=== PATIENT | female | born 1930 | race Caucasian/White ===

== ENCOUNTER 2017-04-19 09:41 | Emergency (ER) | payer MEDICARE, OTHER ==
--- NOTE | 2017-04-19 10:07 | ERNOTE ---
Medical Problem HPI - Narrative Date of Service: 04/19/17 - General Chief Complaint: General Assessment Time Seen by Provider: 04/19/17 10:05 Source: patient, RN/MD, RN notes reviewed, old records Exam Limitations: no limitations - Immun/Allergies/Home Medications Immunizations: IMMUNIZATION HX Immunizations Up to Date Yes History of Influenza Vaccine Yes Hx Pneumococcal Vaccination Yes Allergies/Adverse Reactions: Allergies acetaminophen [From Darvocet-N 100] Adverse Reaction (Mild, Verified 04/19/17 09 :57) N/V propoxyphene napsylate [From Darvocet-N 100] Adverse Reaction (Mild, Verified 09:57) N/V Home Medications: HOME MEDICATIONS Aspirin [Aspirin Enteric Coated] 81 mg PO DAILY 01/11/16 [Last Taken 01/16/16 09 :00] Calcium Carbonate/Vitamin D3 [Calcium 500-Vit D3 200 Tablet] 2 each PO DAILY [Last Taken 01/16/16 09:00] Cholecalciferol [Vitamin D] 1,000 unit PO DAILY 01/11/16 [Last Taken 01/16/16 09 :00] Furosemide [Lasix] 40 mg PO DAILY 01/11/16 [Last Taken 01/16/16 09:00] Metoprolol Tartrate [Lopressor] 25 mg PO BID 01/11/16 [Last Taken 01/16/16 09:00 ] Multivitamins [Multivitamin Almas] 1 cap PO DAILY 01/11/16 [Last Taken 09:00] Simvastatin [Zocor] 10 mg PO DAILY 01/11/16 [Last Taken 01/15/16 21:00] Acetaminophen [Tylenol] 500 mg PO Q4H PRN #30 tablet 01/26/16 [Last Taken Unknown] Lisinopril [Zestril] 40 mg PO DAILY #30 tablet 01/26/16 [Last Taken Unknown] oxyCODONE HCL/ACETAMINOPHEN [Percocet 5 MG/325 MG] 1 tab PO Q4H PRN #10 tablet 01/26/16 [Last Taken Unknown] Albuterol Sulfate [Proair Respiclick] 90 mcg IH Q4H PRN 04/19/17 [Last Taken Unknown] Albuterol Sulfate/Ipratropium [Duoneb 2.5-0.5MG/3ML Soln] 3 ml IH BID PRN [Last Taken Unknown] Iron 04/19/17 [Last Taken Unknown] Iron 28 mg PO DAILY 04/19/17 [Last Taken Unknown] - History of Present History Narrative: 86 y/o female brought to the ED from home by a family member after being contacted by her PCP's office regarding abnormal lab work. She was seen by Dr. Arriola yesterday and found to have a WBC over 20,000. She was found to have cellulitis in her left lower leg and was started on cefdinir. She has not been feeling well for quite sometime. She had a colon resection last year done by Dr. Colon for adenocarcinoma. She has had increased swelling in both legs, trouble swallowing, poor appetite, weight loss and abdominal bloating. She reports feeling like she has to have a bowel movement and then passing a large amount of gas with some loose stool. She also has a cough and shortness of breath, but this is not worse than usual and she attributes it to her COPD. Dr. Arriola spoke to me yesterday regarding the patient since she had directed her to come here for further evaluation. Review of Systems - Review of Systems Constitutional: Present: fatigue, malaise, decreased activity level. Absent: fever, chills EYE: Present: no symptoms reported ENT: Present: no symptoms reported Respiratory: Present: shortness of breath, cough. Absent: orthopnea, wheezing Cardiology: Present: edema. Absent: chest pain, syncope, claudication Gastrointestinal/Abdominal: Present: eating less, drinking less. Absent: nausea , vomiting, abdominal pain Genitourinary: Absent: dysuria, hematuria Musculoskeletal: Present: no symptoms reported Skin: Present: lesions, change in color. Absent: rash, lumps Neurological: Absent: headache, dizziness/light-headedness, weakness, numbness Endocrine: Present: no symptoms reported Hematologic/Lymphatic: Present: no symptoms reported Psych: Present: no symptoms reported - Patient's Past Medical History Patient History - Medical: Other - Giant cell arteritis, Polymyalgia rheumatica Patient History - Cardiac/Respiratory: COPD, Hypertension, Hyperlipidemia Patient History - Cancer: Colon Patient History - Surgical Procedures: Cataracts, Colon Resection, Colonoscopy, T & A, Other Patient History - Other: None LMP (females 10-50): Menopausal LMP (Calendar): 08/13/69 - Family History Father Family History - Medical: , No pertinent hx Family History - Cardiac/Respiratory: Other Mother Family History - Medical: , No pertinent hx - Social History Living Situations: home Abuse History: No History of abuse Psych History: No pertinent hx Smoking Status: Former smoker Have you smoked in the past 12 months: No Patient requests Smoking Cessation Consult: No Initiate information on Smoking Cessation: No Alcohol Use: none Drug Use: none - Immunizations Immunizations Up to Date: Yes Hx Pneumococcal Vaccination: Yes History of Influenza Vaccine: Yes Physical Exam - Physical Exam General Appearance: Present: alert, no apparent distress, thin - Frail appearing Head Exam: Present: normal inspection Neck: Present: normal inspection, nontender, supple Respiratory: Present: no respiratory distress, no accessory muscle use, rales - Right lung base Cardiovascular/Chest: Present: regular rate, rhythm, no murmur, normal peripheral pulses Peripheral Pulses: N=norm/S=strong/W=weak/B=bound/A=absent: Dorsalis-pedis (R): Normal, Dorsalis-pedis (L): Normal Gastrointestinal/Abdominal: Present: normal bowel sounds, nontender, soft, distended - Bloated appearing Extremity Exam: Present: normal range of motion, pedal edema, extremity edema - Right greater than left lower leg. Absent: joint redness, joint swelling Neurological Exam: Present: alert, oriented, normal mood/affect, no motor/ sensory deficits Skin Exam: Present: warm/dry, other - Erythema to bilateral lower legs, much worse on left, dry/crusted yellowish lesions on both lower legs ED Progress - Results and Orders Patient's Lab Results:: I have reviewed the patient's lab results. - Vital Signs Patient's Vital Signs:: I have reviewed the patient's vital signs. Vital Signs: Vital Signs 04/19/17 09:45 Temperature 35.6 C L Pulse Rate 92 Respiratory 16 Rate Blood Pressure 113/42 O2 Sat by Pulse 97 Oximetry - X-Ray X-Ray #1 X-Ray: chest Interpretation: Reviewed by me X-ray Comments: IMPRESSION: 1. Bilateral pulmonary nodules as above, largest in the left upper lobe. Differential diagnosis includes infection versus malignancy to include primary lung cancer versus metastatic disease. 2. Additional comments are as above. Electronically signed by Pil Rashid, M.D.. - Progress/Reassessment Chief Complaint: General Assessment Progress:: Unchanged Progress Note-Subjective: 04/19/17 11:59 Negligible improvement in WBC but has only had 2 doses of cefdinir for the cellulitis in her left leg. No other source of infection found on chest xray or UA. Given the elevation in her alk phos and nodules on chest xray, suspect that her colon CA has metastasized. Discussed this with patient and family. Needs CT of abdomen and pelvis for further evaluation, but she is not having symptoms that necessitate this being done emergently. Will order CT to be done on outpatient basis. Follow up scheduled with PCP. Patient and family in agreement with plan. Departure - Departure Clinical Impression: Cellulitis of left lower leg, Abdominal bloating, Weight loss, unintentional, Elevated alkaline phosphatase level, Adenocarcinoma, colon Disposition: Home Follow Up Needed Condition: Stable Instructions: Cellulitis, Adult, [id number] Additional Instructions: Continue current antibiotic Elevate legs as much as possible, can also try compression socks CT scan and follow up with Dr. Arriola as scheduled Return to ER for fever, vomiting, or other worsening symptoms Referrals: Jen Arriola MD [Primary Care Provider] - 04/24/17 2:30 pm
[2017-04-19 10:38] LABS: Hematocrit 32.9 % (37.0-47.0); Hemoglobin 10.1 gm/dL (12.5-16.0); Mean Cell Volume 84.4 fl (78-100); Mean Corpuscular Hemoglobin 25.9 pg (27-31); Mean Corpuscular Hgb Conc 30.7 g/dl (32-36); Mean Platelet Volume 11.6 fl (6.0-9.5); Neutrophil # 16.3 K/mm3 (1.3-6.0); Platelet Count 703 K/mm3 (150-450); Red Cell Distribution Width 19.2 % (11.5-14.0); White Blood Count 19.4 K/mm3 (4.0-10.5)
[2017-04-19 11:01] LABS: Albumin * 2.2 gm/dl (3.4-5.0); Anion Gap 13.2 mmol/L (6.8-13.8); Bilirubin, Total 0.8 mg/dL (0.0-1.1); Ca. Corrected For Albumin 10.9 mg/dL (8.4-10.2); Calcium * 9.8 mg/dL (7.9-10.9); Carbon Dioxide 28.7 mmol/L (24-32.6); Potassium 3.9 mmol/L (3.4-4.6); Total Protein 6.7 gm/dL (6.2-8.2)
[2017-04-19 11:13] LABS: CRP 23.6 mg/dL (0.0-0.9)
[2017-04-19 11:20] VITALS: BP 110/40
[2017-04-19 11:32] LABS: Urine Bilirubin Negative (NEGATIVE); Urine Blood Negative /ul (NEGATIVE); Urine Ketone Negative (NEGATIVE); Urine Nitrite Negative (NEGATIVE); Urine Protein Negative (NEGATIVE); Urine Urobilinogen Normal (NORMAL)
[2017-04-19 11:40] LABS: Urine Appearance Clear; Urine Bacteria None Seen; Urine Color Dark Yellow; Urine RBC None Seen /hpf (0-5); Urine WBC None Seen /hpf (0-5)
== END 2017-04-19 12:39 | disposition home or self-care (01) ==
LOC: ER 09:41
PROC: 0T9B7ZZ Drainage of Bladder, Via Natural or Artificial Opening (ICD-10-PCS; principal; 2017-04-19)
DX: L03.116 Cellulitis of left lower limb (principal); R14.0 Abdominal distension (gaseous); R63.4 Abnormal weight loss; R74.8 Abnormal levels of other serum enzymes; C18.9 Malignant neoplasm of colon, unspecified; R53.83 Other fatigue

== ENCOUNTER 2017-04-29 14:17 | Inpatient (IN) | payer MEDICARE, OTHER ==
[2017-04-29] MEDS ORDERED: NORMAL SALINE 1,000 ML IV ONE ×2 (14:30→15:51)
[2017-04-29 15:01] LABS: Hemoglobin 10.3 gm/dL (12.5-16.0); Mean Cell Volume 86.2 fl (78-100); Mean Corpuscular Hemoglobin 26.9 pg (27-31); Mean Corpuscular Hgb Conc 31.2 g/dl (32-36); Mean Platelet Volume 11.4 fl (6.0-9.5); Neutrophil # 16.7 K/mm3 (1.3-6.0); Neutrophil % 83.7 % (42-75.0); Platelet Count 652 K/mm3 (150-450); Red Blood Count 3.83 M/mm3 (4.2-5.4); Red Cell Distribution Width 20.7 % (11.5-14.0)
[2017-04-29 15:17] LABS: Troponin I Less than 0.017 ng/ml (0.00-0.10)
[2017-04-29 15:19] LABS: ALT 18 U/L (19-67); AST 34 U/L (0-48); Albumin * 2.1 gm/dl (3.4-5.0); Alkaline Phosphatase * 371 U/L (50-170); Anion Gap 10.2 mmol/L (6.8-13.8); BNP * 1426 pg/mL (5-550); BUN/Creatinine Ratio 24.1 (9.0-21.6); Bilirubin, Total 0.5 mg/dL (0.0-1.1); Blood Urea Nitrogen 48 mg/dL (3-23); Ca. Corrected For Albumin 11.1 mg/dL (8.4-10.2); Calcium * 9.9 mg/dL (7.9-10.9); Carbon Dioxide 31.4 mmol/L (24-32.6); Chloride 102 mmol/L (97-106); Glucose * 103 mg/dL (70-110); Potassium 4.6 mmol/L (3.4-4.6); Sodium 139 mmol/L (132-142); Total Protein 6.8 gm/dL (6.2-8.2)
[2017-04-29 15:47] LABS: Urine Appearance Clear; Urine Bacteria None Seen; Urine Bilirubin Negative (NEGATIVE); Urine Blood Negative /ul (NEGATIVE); Urine Color Yellow; Urine Ketone Negative (NEGATIVE); Urine Nitrite Negative (NEGATIVE); Urine Protein Negative (NEGATIVE); Urine RBC None Seen /hpf (0-5); Urine Urobilinogen Normal (NORMAL); Urine WBC None Seen /hpf (0-5)
[2017-04-29] MEDS: NORMAL SALINE 1,000 ML IV PRN (17:34)
[2017-04-29] MEDS: AZITHROMYCIN 500 MG in DEXTROSE 5 % IN WATER 250 ML IV SCH ×2 (17:57)
[2017-04-29] MEDS ORDERED: ALBUTEROL SULFATE/IPRATROPIUM 3 ML NEBU IH SCH (21:00)
--- NOTE | 2017-04-29 21:04 | HP ---
Chief Complaint - Chief Complaint Date of Service: 04/29/17 Time of Service: 20:29 Chief Complaint: weakness, lethargic, dizziness History of Present Illness: 86 years old female adm to the hospital from ER with reports of dizziness, lethargic, weakness and unintentional weight loss. Pt a poor historian additional information obtained from and previous records. Per pt have not been eating, her legs have gotten weaker and she is having difficulty standing or walking. Per patient she is having difficulty swallowing and often chokes on her food. she has lost her appetite over the past several weeks. Last week she was seen by Dr. Arriola and was told her have mets to lungs and liver. 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 in ER CXR: Bilateral pulmonary nodules stable, no acute cardiopulmonary process. 04/23/17 CT ABD/pelvic: Multiple liver lesions suspicious for liver mets. Incidental opacification of left lower lobe basal segment bronchi-correlate clinically aspiration vs mucus plugging. Plan of care discussed with attending, pt via phone he verbalized understanding and agrees. - Patient's Past Medical History Patient History - Medical: Cataracts, Other Patient History - Cardiac/Respiratory: COPD, Hypertension, Hyperlipidemia Patient History - Cancer: Colon - sigmoid colon cancer, Liver, Lung Patient History - Surgical Procedures: Cataracts, Colon Resection, Colonoscopy, T & A, Other Patient History - Other: None LMP (females 10-50): Menopausal LMP (Calendar): 08/13/69 - Family History Father Family History - Medical: , No pertinent hx Family History - Cardiac/Respiratory: Other Mother Family History - Medical: , No pertinent hx - Social History Living Situations: spouse Abuse History: No History of abuse Psych History: No pertinent hx Smoking Status: Former smoker Have you smoked in the past 12 months: No Do you dip or chew tobacco: No Patient requests Smoking Cessation Consult: No Initiate information on Smoking Cessation: No Alcohol Use: none Drug Use: none - Immunizations Immunizations Up to Date: Yes Hx Pneumococcal Vaccination: Yes History of Influenza Vaccine: Yes Review Of Systems (GEN) - Review of Systems Generalized/Overall Review: Present: Weakness, Malaise, Fatigue, Weight loss EENTM: Present: No Symptoms Reported Respiratory: Present: Cough, Shortness of Breath Cardiac: Present: No Symptoms Reported Abdominal: Present: No Symptoms Reported Genitourinary: Present: No Symptoms Reported Musculoskeletal: Present: No Symptoms Reported Neurological: Present: Weakness Skin: Present: Other - BLE with PAD, swelling, venous stasis Endocrine: Present: No Symptoms Reported Allergies/Adverse Reactions: Allergies Allergy/AdvReac Type Severity Reaction Status Date / Time acetaminophen AdvReac Mild N/V Verified 04/29/17 14:23 [From Darvocet-N 100] propoxyphene napsylate AdvReac Mild N/V Verified 04/29/17 14:23 [From Darvocet-N 100] Home Medications: HOME MEDICATIONS Aspirin [Aspirin Enteric Coated] 81 mg PO DAILY 01/11/16 [Last Taken 01/16/16 09 :00] Calcium Carbonate/Vitamin D3 [Calcium 500-Vit D3 200 Tablet] 2 each PO DAILY [Last Taken 01/16/16 09:00] Cholecalciferol [Vitamin D] 1,000 unit PO DAILY 01/11/16 [Last Taken 01/16/16 09 :00] Furosemide [Lasix] 40 mg PO BID 01/11/16 [Last Taken 01/16/16 09:00] Metoprolol Tartrate [Lopressor] 25 mg PO BID 01/11/16 [Last Taken 01/16/16 09:00 ] Multivitamins [Multivitamin Almas] 1 cap PO DAILY 01/11/16 [Last Taken 09:00] Simvastatin [Zocor] 10 mg PO DAILY 01/11/16 [Last Taken 01/15/16 21:00] Acetaminophen [Tylenol] 500 mg PO Q4H PRN #30 tablet 01/26/16 [Last Taken Unknown] Albuterol Sulfate [Proair Respiclick] 90 mcg IH Q4H PRN 04/19/17 [Last Taken Unknown] Albuterol Sulfate/Ipratropium [Duoneb 2.5-0.5MG/3ML Soln] 3 ml IH BID PRN [Last Taken Unknown] Iron 28 mg PO DAILY 04/19/17 [Last Taken Unknown] Lisinopril [Zestril] 40 mg PO DAILY 04/29/17 [Last Taken Unknown] Exam - Exam Vital Signs: Vital Signs - Last Taken Temp 36.7 C 04/29/17 16:42 Pulse 96 04/29/17 16:42 Resp 24 H 04/29/17 16:42 BP 115/45 04/29/17 16:42 Pulse Ox 96 04/29/17 16:42 Constitutional: Present: Alert, Oriented x3, Cooperative, Lethargic, Elderly ENT Exam: Present: hearing grossly normal Eye Exam: bilateral eye: normal inspection Neck: Present: full range of motion Back Exam: Present: no CVA tenderness Breasts: Present: Exam deferred Respiratory: Present: chest non-tender, no respiratory distress, decreased breath sounds, expiration (prolonged) Cardiovascular/Chest: Present: regular rate, rhythm, edema Peripheral Pulses: dorsalis-pedis (R): 2+, dorsalis-pedis (L): 2+ Abdomen: Present: Normal bowel sounds, soft, nontender, no rebound tenderness, mass palpable, distended /Rectal: Present: Exam deferred Extremity: Present: lower extremity edema, leg pain, pedal edema, slow capillary refill, swelling, other - venous stasis Skin Exam: Present: other - BLE edema stasis, pressure ulcer to buttocks Neurologic: Present: alert Appearance: Present: appropriate appearance Eye contact: Present: cooperative, good eye contact Thoughts: Present: no apparent hallucination. Absent: normal thought pattern Diagnostic Studies: Abnormal Lab Results 04/29/17 Range/Units 17:17 Lactic Acid, Venous 2.0 H (0.4-1.9) mmol/L Laboratory Results WBC 20.0 K/mm3 (4.0-10.5) H 04/29/17 14:40 RBC 3.83 M/mm3 (4.2-5.4) L 04/29/17 14:40 Hgb 10.3 gm/dL (12.5-16.0) L 04/29/17 14:40 Hct 33.0 % (37.0-47.0) L 04/29/17 14:40 MCV 86.2 fl (78-100) 04/29/17 14:40 MCH 26.9 pg (27-31) L 04/29/17 14:40 MCHC 31.2 g/dl (32-36) L 04/29/17 14:40 RDW 20.7 % (11.5-14.0) H 04/29/17 14:40 Plt Count 652 K/mm3 (150-450) H 04/29/17 14:40 MPV 11.4 fl (6.0-9.5) H 04/29/17 14:40 Immature Gran % (Auto) 0.90 % (0.001-0.429) H 04/29/17 14:40 Immature Gran # (Auto) 0.18 K/mm3 (0.000-0.0310) H 04/29/17 14:40 Neutrophils % 83.7 % (42-75.0) H 04/29/17 14:40 Lymphocytes % 7.1 % (20-51) L 04/29/17 14:40 Monocytes % 6.3 % (0.0-9) 04/29/17 14:40 Eosinophils % 1.6 % (0.0-3.0) 04/29/17 14:40 Basophils % 0.4 % (0.0-1.0) 04/29/17 14:40 Nucleated RBC % 0.0 k/mm3 (0-1) 04/29/17 14:40 Neutrophils # 16.7 K/mm3 (1.3-6.0) H 04/29/17 14:40 Lymphocytes # 1.4 k/mm3 (1.5-3.5) L 04/29/17 14:40 Monocytes # 1.3 k/mm3 (0.0-1.0) H 04/29/17 14:40 Eosinophils # 0.3 k/mm3 (0.0-0.7) 04/29/17 14:40 Absolute Basophils 0.1 k/mm3 (0.0-0.1) 04/29/17 14:40 Sodium 139 mmol/L (132-142) 04/29/17 14:40 Plasma Sodium 139 mmol/L (130-142) 04/29/17 14:40 Potassium 4.6 mmol/L (3.4-4.6) 04/29/17 14:40 Chloride 102 mmol/L (97-106) 04/29/17 14:40 Carbon Dioxide 31.4 mmol/L (24-32.6) 04/29/17 14:40 Anion Gap 10.2 mmol/L (6.8-13.8) 04/29/17 14:40 BUN 48 mg/dL (3-23) H D 04/29/17 14:40 Creatinine 1.99 mg/dL (0.4-1.4) H D 04/29/17 14:40 Est GFR (Non-Af Amer) 25 mL/min (60-130) L D 04/29/17 14:40 BUN/Creatinine Ratio 24.1 (9.0-21.6) H 04/29/17 14:40 Random Glucose 103 mg/dL (70-110) 04/29/17 14:40 Lactic Acid, Venous 2.0 mmol/L (0.4-1.9) H 04/29/17 17: Calcium 9.9 mg/dL (7.9-10.9) 04/29/17 14:40 Calcium Adj for Albumin 11.1 mg/dL (8.4-10.2) H 04/29/17 14:40 Total Bilirubin 0.5 mg/dL (0.0-1.1) 04/29/17 14:40 AST 34 U/L (0-48) 04/29/17 14:40 ALT 18 U/L (19-67) L 04/29/17 14:40 Alkaline Phosphatase 371 U/L (50-170) H 04/29/17 14:40 Troponin I Less than 0.017 ng/ml (0.00-0.10) 04/29/17 14:40 B-Natriuretic Peptide 1426 pg/mL (5-550) H 04/29/17 14:40 Total Protein 6.8 gm/dL (6.2-8.2) 04/29/17 14:40 Albumin 2.1 gm/dl (3.4-5.0) L 04/29/17 14:40 Urine Color Yellow 04/29/17 15:40 Urine Appearance Clear 04/29/17 15:40 Urine pH 6.0 pH (5.0-7.0) 04/29/17 15:40 Ur Specific [place] 1.010 SP.GR. (1.005-1.010) 04/29/17 15:40 Urine Protein Negative mg/dL (NEGATIVE) 04/29/17 15:40 Urine Glucose (UA) Negative mg/dL (NEGATIVE) 04/29/17 15:40 Urine Ketones Negative mg/dL (NEGATIVE) 04/29/17 15:40 Urine Blood Negative /ul (NEGATIVE) 04/29/17 15:40 Urine Nitrate Negative (NEGATIVE) 04/29/17 15:40 Urine Bilirubin Negative mg/dl (NEGATIVE) 04/29/17 15:40 Urine Urobilinogen Normal EU/dl (NORMAL) 04/29/17 15:40 Ur Leukocyte Esterase Negative /ul (NEGATIVE) 04/29/17 15:40 Urine RBC None seen /hpf (0-5) 04/29/17 15:40 Urine WBC None seen /hpf (0-5) 04/29/17 15:40 Ur Epithelial Cells None seen /hpf (0-5) 04/29/17 15:40 Urine Bacteria None seen (NONE) 04/29/17 15:40 Urine Culture Comments No culture indicated 04/29/17 15:40 CXR: Bilateral pulmonary nodules stable, no acute cardiopulmonary process. 04/23/17 CT ABD/pelvic: Multiple liver lesions suspicious for liver mets. Incidental opacification of left lower lobe basal segment bronchi-correlate clinically aspiration vs mucus plugging Assessment/Plan - Narrative Narrative: Liver lesions: 04/23/17 CT ABD/pelvic: Multiple liver lesions suspicious for liver mets. pt had history of adenocarcinoma of sigmoid colon, 01/2016 S/P sigmoid colon resection pt stated she was told a week ago about the liver mets. Dr. Arriola will discuss with Dr Colon and determine next plan of action. As of now she will wait for their input. pt is often disoriented and confused, will obtain head CT Unable to obtain CT with contrast due to elevated Bun/Cre 48/1.99 Ct head w/o: Atrophy, chronic microvascular changes of the white matter, otherwise negative ? URI vs Aspiration pneumonia vs Mucus plugging 04/23/17 Incidental opacification of left lower lobe basal segment bronchi 04/29/17 CXR: Pulmonary nodules stable, no acute cardiopulmonary process. Pt stated she have difficulty swallowing and often chokes on her food. On adm WBC 20.0, lactic acid 2.0 Continue with Iv antibiotic chest PT blood culture pending sputum culture pending CBC, CMP in AM venous stasis dermatitis wound care keep legs elevated on pillows. Protective paddings. Thrombocytosis- possible due to malignancy or anemia or infection On adm PLT 652, WBC 20.0, hgb 10.3 stable repeat PLT in AM Continue with plans as above labs pending Hypotension r/o sepsis on adm BP 106/45 HR 101, WBC 20.0 Continue to monitor vital signs and IVF Continue with plan as above in #2 ESPINOZA On adm Bun/ Cre 48/1.99 continue with IVF and monitor CMP in AM Unintentional weight loss- due to poor oral intake pt stated she loss approximately 30lb under a month Code status: Full with restrictions VTE ppx: TEDs/ SCD GI ppx: Protonix - Assessment/Plan (1) Liver lesion Problem: Acute (2) Adenocarcinoma, colon Problem: Chronic (3) Elevated alkaline phosphatase level Problem: Acute (4) Lower extremity edema Problem: Chronic (5) Shortness of breath Problem: Chronic (6) Venous stasis dermatitis Problem: Chronic Qualifiers: Laterality: bilateral Qualified Code(s): I87.2 - Venous insufficiency ( chronic) (peripheral) (7) Weight loss, unintentional Problem: Acute (8) HLD (hyperlipidemia) Problem: Chronic (9) HTN (hypertension) Problem: Chronic Qualifiers:
[2017-04-29] MEDS ORDERED: ALBUTEROL SULFATE/IPRATROPIUM 3 ML NEBU IH ONE (21:27)
[2017-04-29] MEDS ORDERED: ALBUTEROL SULFATE/IPRATROPIUM 3 ML NEBU IH PRN (21:54)
[2017-04-29] MEDS ORDERED: PANTOPRAZOLE SODIUM 40 MG in NORMAL SALINE 100 ML IV SCH (22:00)
[2017-04-29] MEDS: METOPROLOL TARTRATE 25 MG TABLET PO SCH (22:04)
[2017-04-29] MEDS ORDERED: SIMVASTATIN 10 MG TABLET PO SCH (22:30)
[2017-04-30] MEDS: ALBUTEROL SULFATE/IPRATROPIUM 3 ML NEBU IH SCH ×4 (01:18→18:18)
[2017-04-30] MEDS: MORPHINE SULFATE 2 MG/ML DISP.SYRIN IV PRN ×2 (01:39→22:11)
[2017-04-30] MEDS ORDERED: MORPHINE SULFATE 4 MG/ML SYRG IV PRN (02:54)
[2017-04-30] MEDS ORDERED: MORPHINE SULFATE 2 MG/ML DISP.SYRIN IV ONE (02:59)
[2017-04-30] MEDS: NORMAL SALINE 1,000 ML IV PRN (03:18)
[2017-04-30 05:33] LABS: Hemoglobin 8.4 gm/dL (12.5-16.0); Mean Cell Volume 86.3 fl (78-100); Mean Corpuscular Hemoglobin 26.8 pg (27-31); Mean Corpuscular Hgb Conc 31.1 g/dl (32-36); Mean Platelet Volume 11.8 fl (6.0-9.5); Neutrophil # 15.1 K/mm3 (1.3-6.0); Neutrophil % 88.2 % (42-75.0); Platelet Count 502 K/mm3 (150-450); Red Blood Count 3.13 M/mm3 (4.2-5.4); Red Cell Distribution Width 20.4 % (11.5-14.0); White Blood Count 17.2 K/mm3 (4.0-10.5)
[2017-04-30 05:52] LABS: Albumin * 1.5 gm/dl (3.4-5.0); Anion Gap 12.6 mmol/L (6.8-13.8); BUN/Creatinine Ratio 22.4 (9.0-21.6); Bilirubin, Total 0.5 mg/dL (0.0-1.1); Ca. Corrected For Albumin 9.7 mg/dL (8.4-10.2); Potassium 3.6 mmol/L (3.4-4.6); Total Protein 5.1 gm/dL (6.2-8.2)
[2017-04-30] MEDS ORDERED: NORMAL SALINE 1,000 ML IV ONE (05:55)
[2017-04-30] MEDS: DEXTROSE 5%-0.5 NORMAL SALINE 1,000 ML IV PRN ×2 (07:43→15:34)
[2017-04-30] MEDS: MULTIVITAMINS 1 CAP CAPSULE PO SCH (08:42)
[2017-04-30] MEDS: CHOLECALCIFEROL 1,000 UNIT CAPSULE PO SCH (08:42)
[2017-04-30] MEDS: CALCIUM CARBONATE/VITAMIN D3 1 TAB TABLET PO SCH ×2 (08:42→20:29)
[2017-04-30] MEDS: METOPROLOL TARTRATE 25 MG TABLET PO SCH (08:43)
[2017-04-30] MEDS ORDERED: FUROSEMIDE 40 MG TABLET PO SCH (09:00)
[2017-04-30] MEDS ORDERED: ASPIRIN 81 MG TABLET.DR PO SCH (09:00)
[2017-04-30] MEDS ORDERED: Iron 28 MG PO SCH (09:00)
[2017-04-30] MEDS: AZITHROMYCIN 500 MG in DEXTROSE 5 % IN WATER 250 ML IV SCH ×2 (17:58)
[2017-04-30] MEDS: HEPARIN SODIUM,PORCINE 5,000 UNITS/ML VIAL SC SCH (20:29)
[2017-05-01] MEDS: ALBUTEROL SULFATE/IPRATROPIUM 3 ML NEBU IH SCH ×4 (01:02→18:26)
[2017-05-01] MEDS: DEXTROSE 5%-0.5 NORMAL SALINE 1,000 ML IV PRN (03:19)
[2017-05-01 06:15] LABS: Hematocrit 27.5 % (37.0-47.0); Hemoglobin 8.9 gm/dL (12.5-16.0); Mean Cell Volume 83.8 fl (78-100); Mean Corpuscular Hemoglobin 27.1 pg (27-31); Mean Corpuscular Hgb Conc 32.4 g/dl (32-36); Mean Platelet Volume 11.4 fl (6.0-9.5); Platelet Count 507 K/mm3 (150-450); Red Blood Count 3.28 M/mm3 (4.2-5.4); Red Cell Distribution Width 20.5 % (11.5-14.0); White Blood Count 22.2 K/mm3 (4.0-10.5)
[2017-05-01 06:18] LABS: Total Cells Counted 100
[2017-05-01 06:23] LABS: Anion Gap 13.3 mmol/L (6.8-13.8); BUN/Creatinine Ratio 15.3 (9.0-21.6); Calcium * 7.9 mg/dL (7.9-10.9); Estimated Creat Clear 26.7; Potassium 3.3 mmol/L (3.4-4.6)
[2017-05-01 06:46] LABS: Lymphocyte 10 % (20-51); Monocyte 2 % (0-9); Neutrophil 88 % (42-75); Neutrophil # 19.5 K/mm3 (1.3-6.0)
[2017-05-01 06:47] LABS: Anisocytosis 2+; Hypochromia 2+
[2017-05-01 06:48] LABS: Platelet Estimate Increased (NORMAL)
[2017-05-01] MEDS ORDERED: POTASSIUM CHLORIDE 20 MEQ TABLET.SA PO ONE (07:32)
[2017-05-01] MEDS: CALCIUM CARBONATE/VITAMIN D3 1 TAB TABLET PO SCH ×2 (08:15→21:31)
[2017-05-01] MEDS: HEPARIN SODIUM,PORCINE 5,000 UNITS/ML VIAL SC SCH ×2 (08:16→21:35)
[2017-05-01] MEDS: CHOLECALCIFEROL 1,000 UNIT CAPSULE PO SCH (08:16)
[2017-05-01] MEDS: MULTIVITAMINS 1 CAP CAPSULE PO SCH (08:16)
[2017-05-01] MEDS ORDERED: Iron 28 MG PO SCH (09:00)
[2017-05-01] MEDS ORDERED: POTASSIUM CHLORIDE 20 MEQ in NORMAL SALINE 1,000 ML IV SCH (09:45)
[2017-05-01] MEDS ORDERED: CEFEPIME HCL 1 GM in DEXTROSE 5 % IN WATER 100 ML IV SCH ×2 (10:00)
[2017-05-01] MEDS: SACCHAROMYCES BOULARDII 250 MG CAPSULE PO SCH ×2 (10:19→21:31)
[2017-05-01] MEDS: LEVOFLOXACIN/D5W 750 MG/150 ML BAG IV SCH (10:59)
[2017-05-01] MEDS ORDERED: DEXTROSE 5%-0.5 NORMAL SALINE 1,000 ML IV PRN (11:44)
[2017-05-01] MEDS: POTASSIUM CHLORIDE 20 MEQ in DEXTROSE 5%-0.5 NORMAL SALINE 990 ML IV SCH ×2 (11:56→21:29)
[2017-05-01] MEDS: VANCOMYCIN HCL 750 MG in DEXTROSE 5 % IN WATER 250 ML IV SCH ×2 (12:40)
[2017-05-01] MEDS ORDERED: ACETAMINOPHEN 325 MG TABLET PO PRN (13:39)
[2017-05-02] MEDS: ALBUTEROL SULFATE/IPRATROPIUM 3 ML NEBU IH SCH ×4 (00:20→21:56)
[2017-05-02] MEDS: POTASSIUM CHLORIDE 20 MEQ in DEXTROSE 5%-0.5 NORMAL SALINE 990 ML IV SCH (05:37)
[2017-05-02 06:07] LABS: Hematocrit 30.9 % (37.0-47.0); Hemoglobin 9.6 gm/dL (12.5-16.0); Mean Cell Volume 85.1 fl (78-100); Mean Corpuscular Hemoglobin 26.4 pg (27-31); Mean Corpuscular Hgb Conc 31.1 g/dl (32-36); Mean Platelet Volume 11.3 fl (6.0-9.5); Platelet Count 603 K/mm3 (150-450); Red Blood Count 3.63 M/mm3 (4.2-5.4); Red Cell Distribution Width 21.1 % (11.5-14.0); White Blood Count 27.3 K/mm3 (4.0-10.5)
[2017-05-02 06:17] LABS: Total Cells Counted 100
[2017-05-02 06:36] LABS: Albumin * 1.6 gm/dl (3.4-5.0); Anion Gap 14.1 mmol/L (6.8-13.8); Bilirubin Direct 0.2 mg/dL (0.0-0.3); Bilirubin, Total 0.4 mg/dL (0.0-1.1); Bilirubin,Indirect 0.2 mg/dL (0.1-0.7); Calcium * 8.2 mg/dL (7.9-10.9); Carbon Dioxide 22.4 mmol/L (24-32.6); Estimated Creat Clear 33.1; Potassium 4.5 mmol/L (3.4-4.6); Total Protein 5.8 gm/dL (6.2-8.2)
[2017-05-02 06:51] LABS: Neutrophil 92 % (42-75)
[2017-05-02 06:52] LABS: Band 1 % (0-2.0); Eosinophil 3 % (0-3); Hypochromia 1+; Lymphocyte 2 % (20-51); Monocyte 2 % (0-9); Neutrophil # 25.1 K/mm3 (1.3-6.0); Platelet Estimate Increased (NORMAL)
[2017-05-02] MEDS: MULTIVITAMINS 1 CAP CAPSULE PO SCH (08:40)
[2017-05-02] MEDS: HEPARIN SODIUM,PORCINE 5,000 UNITS/ML VIAL SC SCH (08:40)
[2017-05-02] MEDS: CALCIUM CARBONATE/VITAMIN D3 1 TAB TABLET PO SCH ×2 (08:40→20:44)
[2017-05-02] MEDS: SACCHAROMYCES BOULARDII 250 MG CAPSULE PO SCH ×2 (08:40→20:44)
[2017-05-02] MEDS: CHOLECALCIFEROL 1,000 UNIT CAPSULE PO SCH (08:40)
[2017-05-02] MEDS: NORMAL SALINE 1,000 ML IV PRN ×2 (08:42→23:29)
[2017-05-02] MEDS: CEFEPIME HCL 1 GM in DEXTROSE 5 % IN WATER 100 ML IV SCH ×2 (10:10)
[2017-05-02] MEDS: VANCOMYCIN HCL 750 MG in DEXTROSE 5 % IN WATER 250 ML IV SCH ×2 (12:05)
[2017-05-02 12:12] LABS: Prothrombin Time (Patient) 11.9 Seconds (9.4-11.4)
[2017-05-02 12:13] LABS: INR 1.14 INR (0.90-1.10); Partial Thrombolplastin Time 37.9 Seconds (24-32)
[2017-05-02] MEDS: MORPHINE SULFATE 2 MG/ML DISP.SYRIN IV PRN ×2 (15:49→22:26)
[2017-05-02] MEDS: ALBUTEROL SULFATE 2.5 MG/0.5 ML VIAL.NEB IH PRN (16:03)
[2017-05-02] MEDS ORDERED: MORPHINE SULFATE 2 MG/ML DISP.SYRIN IV ONE (19:45)
[2017-05-03] MEDS: ALBUTEROL SULFATE/IPRATROPIUM 3 ML NEBU IH SCH ×4 (01:20→17:59)
[2017-05-03 06:59] LABS: Hematocrit 31.7 % (37.0-47.0); Hemoglobin 9.5 gm/dL (12.5-16.0); Mean Cell Volume 87.6 fl (78-100); Mean Corpuscular Hemoglobin 26.2 pg (27-31); Mean Platelet Volume 10.9 fl (6.0-9.5); Platelet Count 649 K/mm3 (150-450); Red Blood Count 3.62 M/mm3 (4.2-5.4); Red Cell Distribution Width 20.7 % (11.5-14.0); White Blood Count 27.6 K/mm3 (4.0-10.5)
[2017-05-03 07:01] LABS: Total Cells Counted 100
[2017-05-03 07:29] LABS: Anion Gap 11.4 mmol/L (6.8-13.8); BUN/Creatinine Ratio 18.4 (9.0-21.6); Calcium * 8.3 mg/dL (7.9-10.9); Carbon Dioxide 23.3 mmol/L (24-32.6); Estimated Creat Clear 43.6; Potassium 4.7 mmol/L (3.4-4.6); Total Protein 5.6 gm/dL (6.2-8.2)
--- NOTE | 2017-05-03 07:33 | PN ---
Subjective - Date and Time Seen Date: 04/30/17 Time: 09:00 Objective - Review of Systems Generalized/Overall Review: Reports: Weakness, Fatigue, Weight loss EENTM: Reports: No Symptoms Reported Respiratory: Reports: Cough, Shortness of Breath, Orthopnea, Wheezing Cardiac: Reports: No Symptoms Reported Abdominal: Reports: No Symptoms Reported Genitourinary Symptoms: Reports: No Symptoms Reported Musculoskeletal Complaints: Reports: No Symptoms Reported Neurological: Reports: No Symptoms Reported Skin: Reports: No Symptoms Reported Endocrine: Reports: No Symptoms Reported Misc: All systems neg except as marked - Vitals Vitals: Last Vital Signs Temp 36.4 C L 05/03/17 07:21 Pulse 117 H 05/03/17 07:21 Resp 40 H 05/03/17 07:21 BP 140/53 05/03/17 07:21 Pulse Ox 97 05/03/17 07:21 - Abnormal Lab Findings Abnormal Lab Findings: Abnormal Lab Results 05/02/17 05/02/17 05/03/17 Range/Units 05:35 11:57 06:57 WBC (4.0-10.5) K/mm3 RBC (4.2-5.4) M/mm3 Hgb (12.5-16.0) gm/dL Hct (37.0-47.0) % MCH (27-31) pg MCHC (32-36) g/dl RDW (11.5-14.0) % Plt Count (150-450) K/mm3 MPV (6.0-9.5) fl PT 11.9 H (9.4-11.4) Seconds INR (Anticoag Therapy) 1.14 H (0.90-1.10) INR PTT ([place]) 37.9 H (24-32) Seconds Potassium 4.7 H (3.4-4.6) mmol/L Chloride 109 H (97-106) mmol/L Carbon Dioxide 23.3 L (24-32.6) mmol/L Lactate Dehydrogenase 336 H (81-234) U/L Total Protein 5.6 L (6.2-8.2) gm/dL Procalcitonin 1.14 H (0.05-0.50) ng/mL 05/03/17 Range/Units 06:58 WBC 27.6 H (4.0-10.5) K/mm3 RBC 3.62 L (4.2-5.4) M/mm3 Hgb 9.5 L (12.5-16.0) gm/dL Hct 31.7 L (37.0-47.0) % MCH 26.2 L (27-31) pg MCHC 30.0 L (32-36) g/dl RDW 20.7 H (11.5-14.0) % Plt Count 649 H (150-450) K/mm3 MPV 10.9 H (6.0-9.5) fl PT (9.4-11.4) Seconds INR (Anticoag Therapy) (0.90-1.10) INR PTT ([place]) (24-32) Seconds Potassium (3.4-4.6) mmol/L Chloride (97-106) mmol/L Carbon Dioxide (24-32.6) mmol/L Lactate Dehydrogenase (81-234) U/L Total Protein (6.2-8.2) gm/dL Procalcitonin (0.05-0.50) ng/mL - Exam Constitutional: Present: Alert, Oriented x3, Cooperative, Elderly ENT Exam: Present: hearing grossly normal, moist mucous membranes Respiratory: Present: other - Diminished to absent breath sounds at the bases bilaterally, coarse breath sounds with rhonchi noted on left Cardiovascular/Chest: Present: regular rate, rhythm, edema Abdomen: Present: soft, nontender, nondistended, hypoactive Extremity: Present: lower extremity edema Skin Exam: Present: warm/dry Neurologic: Present: alert, normal mood/affect, oriented x 3 Appearance: Present: appropriate appearance, appropriate insight, neat, no memory impairment Eye contact: Present: cooperative, good eye contact, normal speech Thoughts: Present: normal thought pattern, no apparent hallucination Assessment/Plan Plan Narrative: Patient admitted for hypotension and generalized weakness as well as unintentional weight loss. The patient has lost over 10 pounds within the last 6 months unintentionally. Of note, in January 2016 the patient underwent a colon resection for low-grade moderately differentiated adenocarcinoma of the sigmoid colon. It is unclear whether or not additional imaging for staging was obtained at that time. Approximately one week prior to her admission, she was in the emergency department for similar symptoms generalized weakness and was found to have multiple liver lesions. No further workup was obtained and the patient was scheduled to see an oncologist that comes to [facility] the [facility] early May. The patients condition continued to deteriorate and she became weaker and thus presented again to the emergency department. She was found to be hypotensive and was admitted for further evaluation and management. Continue aggressive IV fluid hydration. Continue current antibiotics. Pro-calcitonin ordered. Sputum culture ordered. Patient also complains of difficulty coughing up her excretions and feeling like they get stuck in the back of her throat. Swallow evaluation ordered. Continue to follow clinical course but I would imagine that the patient will likely be in the hospital for at least 2-3 days. - Problems/Diagnosis (1) Metastatic cancer Problem: Suspected (2) Lung nodules Problem: Acute (3) Liver lesion Problem: Acute (4) S/P colon resection Problem: Chronic (5) Weight loss, unintentional Problem: Acute (6) Adenocarcinoma, colon Problem: Chronic (7) Lower extremity edema Problem: Acute Narrative: Acute on chronic (8) Venous stasis dermatitis Problem: Chronic Qualifiers: Laterality: bilateral Qualified Code(s): I87.2 - Venous insufficiency ( chronic) (peripheral) (9) Normocytic anemia Problem: Acute Narrative: Acute on chronic (10) Leukocytosis Problem: Acute (11) Thrombocytosis Problem: Acute (12) Pneumonia Problem: Acute
--- NOTE | 2017-05-03 07:33 | PN ---
Subjective - Date and Time Seen Date: 05/01/17 Time: 10:00 Subjective Narrative: Patient seen and examined at bedside. No acute issues overnight. She denies any new issues or concerns. Continues to feel very weak. Continue to have a cough and difficulty coughing up the sputum in her throat. Objective - Review of Systems Generalized/Overall Review: Reports: Weakness, Fatigue, Weight loss EENTM: Reports: No Symptoms Reported Respiratory: Reports: Cough, Shortness of Breath, Orthopnea, Wheezing Cardiac: Reports: No Symptoms Reported Abdominal: Reports: No Symptoms Reported Genitourinary Symptoms: Reports: No Symptoms Reported Musculoskeletal Complaints: Reports: No Symptoms Reported Neurological: Reports: No Symptoms Reported Skin: Reports: No Symptoms Reported Endocrine: Reports: No Symptoms Reported Misc: All systems neg except as marked - Vitals Vitals: Last Vital Signs Temp 36.4 C L 05/03/17 07:21 Pulse 117 H 05/03/17 07:21 Resp 40 H 05/03/17 07:21 BP 140/53 05/03/17 07:21 Pulse Ox 97 05/03/17 07:21 - Abnormal Lab Findings Abnormal Lab Findings: Abnormal Lab Results 05/02/17 05/02/17 05/03/17 Range/Units 05:35 11:57 06:57 WBC (4.0-10.5) K/mm3 RBC (4.2-5.4) M/mm3 Hgb (12.5-16.0) gm/dL Hct (37.0-47.0) % MCH (27-31) pg MCHC (32-36) g/dl RDW (11.5-14.0) % Plt Count (150-450) K/mm3 MPV (6.0-9.5) fl PT 11.9 H (9.4-11.4) Seconds INR (Anticoag Therapy) 1.14 H (0.90-1.10) INR PTT ([place]) 37.9 H (24-32) Seconds Potassium 4.7 H (3.4-4.6) mmol/L Chloride 109 H (97-106) mmol/L Carbon Dioxide 23.3 L (24-32.6) mmol/L Lactate Dehydrogenase 336 H (81-234) U/L Total Protein 5.6 L (6.2-8.2) gm/dL Procalcitonin 1.14 H (0.05-0.50) ng/mL 05/03/17 Range/Units 06:58 WBC 27.6 H (4.0-10.5) K/mm3 RBC 3.62 L (4.2-5.4) M/mm3 Hgb 9.5 L (12.5-16.0) gm/dL Hct 31.7 L (37.0-47.0) % MCH 26.2 L (27-31) pg MCHC 30.0 L (32-36) g/dl RDW 20.7 H (11.5-14.0) % Plt Count 649 H (150-450) K/mm3 MPV 10.9 H (6.0-9.5) fl PT (9.4-11.4) Seconds INR (Anticoag Therapy) (0.90-1.10) INR PTT ([place]) (24-32) Seconds Potassium (3.4-4.6) mmol/L Chloride (97-106) mmol/L Carbon Dioxide (24-32.6) mmol/L Lactate Dehydrogenase (81-234) U/L Total Protein (6.2-8.2) gm/dL Procalcitonin (0.05-0.50) ng/mL - Exam Constitutional: Present: Alert, Oriented x3, Cooperative, No distress ENT Exam: Present: hearing grossly normal, moist mucous membranes Respiratory: Present: other - Diminished to absent breath sounds at the bases bilaterally, coarse breath sounds with rhonchi noted on left Cardiovascular/Chest: Present: regular rate, rhythm, edema Abdomen: Present: soft, nontender, nondistended, hypoactive Extremity: Present: lower extremity edema Skin Exam: Present: warm/dry, other - Evidence of venous stasis dermatitis with mild erythema of lower extremities (especially over osborn area) bilaterally Neurologic: Present: alert, normal mood/affect, oriented x 3 Appearance: Present: appropriate appearance, appropriate insight, neat, no memory impairment Eye contact: Present: cooperative, good eye contact, normal speech Thoughts: Present: normal thought pattern, no apparent hallucination Assessment/Plan Plan Narrative: Continue current cares. Creatinine improved with aggressive IVF hydration. Chest CT with contrast ordered for further evaluation and lung nodules. Further recommendations pending results of chest CT. 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
--- NOTE | 2017-05-03 07:34 | PN ---
Subjective - Date and Time Seen Date: 05/02/17 Time: 09:15 Subjective Narrative: Patient seen and examined at bedside. No acute issues overnight. She denies any new issues or concerns. Plan is for bedside thoracentesis later today. Objective - Review of Systems Generalized/Overall Review: Reports: Weakness, Fatigue, Weight loss EENTM: Reports: No Symptoms Reported Respiratory: Reports: Cough, Shortness of Breath, Orthopnea, Wheezing Cardiac: Reports: No Symptoms Reported Abdominal: Reports: No Symptoms Reported Genitourinary Symptoms: Reports: No Symptoms Reported Musculoskeletal Complaints: Reports: No Symptoms Reported Neurological: Reports: No Symptoms Reported Skin: Reports: No Symptoms Reported Endocrine: Reports: No Symptoms Reported Misc: All systems neg except as marked - Vitals Vitals: Last Vital Signs Temp 36.4 C L 05/03/17 07:21 Pulse 117 H 05/03/17 07:21 Resp 40 H 05/03/17 07:21 BP 140/53 05/03/17 07:21 Pulse Ox 97 05/03/17 07:21 - Abnormal Lab Findings Abnormal Lab Findings: Abnormal Lab Results 05/02/17 05/02/17 05/03/17 Range/Units 05:35 11:57 06:57 WBC (4.0-10.5) K/mm3 RBC (4.2-5.4) M/mm3 Hgb (12.5-16.0) gm/dL Hct (37.0-47.0) % MCH (27-31) pg MCHC (32-36) g/dl RDW (11.5-14.0) % Plt Count (150-450) K/mm3 MPV (6.0-9.5) fl PT 11.9 H (9.4-11.4) Seconds INR (Anticoag Therapy) 1.14 H (0.90-1.10) INR PTT ([place]) 37.9 H (24-32) Seconds Potassium 4.7 H (3.4-4.6) mmol/L Chloride 109 H (97-106) mmol/L Carbon Dioxide 23.3 L (24-32.6) mmol/L Lactate Dehydrogenase 336 H (81-234) U/L Total Protein 5.6 L (6.2-8.2) gm/dL Procalcitonin 1.14 H (0.05-0.50) ng/mL 05/03/17 Range/Units 06:58 WBC 27.6 H (4.0-10.5) K/mm3 RBC 3.62 L (4.2-5.4) M/mm3 Hgb 9.5 L (12.5-16.0) gm/dL Hct 31.7 L (37.0-47.0) % MCH 26.2 L (27-31) pg MCHC 30.0 L (32-36) g/dl RDW 20.7 H (11.5-14.0) % Plt Count 649 H (150-450) K/mm3 MPV 10.9 H (6.0-9.5) fl PT (9.4-11.4) Seconds INR (Anticoag Therapy) (0.90-1.10) INR PTT ([place]) (24-32) Seconds Potassium (3.4-4.6) mmol/L Chloride (97-106) mmol/L Carbon Dioxide (24-32.6) mmol/L Lactate Dehydrogenase (81-234) U/L Total Protein (6.2-8.2) gm/dL Procalcitonin (0.05-0.50) ng/mL - Exam Constitutional: Present: Alert, Oriented x3, Cooperative, No distress ENT Exam: Present: hearing grossly normal, moist mucous membranes Respiratory: Present: other - Diminished to absent breath sounds at the bases bilaterally, coarse breath sounds with rhonchi noted on left Cardiovascular/Chest: Present: regular rate, rhythm, edema Abdomen: Present: soft, nontender, nondistended, hypoactive Skin Exam: Present: warm/dry, other - Evidence of venous stasis dermatitis with mild erythema of lower extremities (especially over osborn area) bilaterally Neurologic: Present: alert, normal mood/affect, oriented x 3 Appearance: Present: appropriate appearance, appropriate insight, neat, no memory impairment Eye contact: Present: cooperative, good eye contact, normal speech Thoughts: Present: normal thought pattern, no apparent hallucination Assessment/Plan Plan Narrative: Plan for bedside thoracentesis today (at least 6 hours after subQ heparin for VTE ppx was given); primarily diagnostic and secondarily therapeutic. Send fluid for analysis including gram stain and culture, LDH, total protein, etc. Also, send fluid for cytology. If non-diagnostic, patient will need to have a liver biopsy next week (after she has been off her aspirin for 7 days which was discontinued on 05/01/2017). Continue ongoing PT evaluation and treatment. Continue current antibiotics. Await pleural fluid results. - Problems/Diagnosis (1) Leukocytosis Problem: Acute (2) Liver lesion Problem: Acute (3) Lung nodules Problem: Acute (4) Normocytic anemia Problem: Acute (5) Pleural effusion Problem: Acute (6) Pneumonia Problem: Acute (7) Thrombocytosis Problem: Acute (8) Metastatic cancer Problem: Suspected (9) Lower extremity edema Problem: Acute (10) Weight loss, unintentional Problem: Acute (11) Adenocarcinoma, colon Problem: Chronic (12) S/P colon resection Problem: Chronic (13) Venous stasis dermatitis Problem: Chronic Qualifiers: Laterality: bilateral Qualified Code(s): I87.2 - Venous insufficiency ( chronic) (peripheral)
--- NOTE | 2017-05-03 07:34 | PN ---
Subjective - Date and Time Seen Date: 05/03/17 Time: 07:34 Subjective Narrative: Patient seen and examined at bedside. No acute issues overnight. Patient states she is very sleepy this AM so she is trying to catch up on some sleep. She denies any new issues or concerns. Objective - Review of Systems Generalized/Overall Review: Reports: Weakness, Fatigue, Weight loss EENTM: Reports: No Symptoms Reported Respiratory: Reports: Cough, Shortness of Breath, Orthopnea, Wheezing Cardiac: Reports: No Symptoms Reported Abdominal: Reports: No Symptoms Reported Genitourinary Symptoms: Reports: No Symptoms Reported Musculoskeletal Complaints: Reports: No Symptoms Reported Neurological: Reports: No Symptoms Reported Skin: Reports: No Symptoms Reported Endocrine: Reports: No Symptoms Reported Misc: All systems neg except as marked - Vitals Vitals: Last Vital Signs Temp 36.4 C L 05/03/17 07:21 Pulse 117 H 05/03/17 07:21 Resp 40 H 05/03/17 07:21 BP 140/53 05/03/17 07:21 Pulse Ox 97 05/03/17 07:21 - Abnormal Lab Findings Abnormal Lab Findings: Abnormal Lab Results 05/02/17 05/02/17 05/03/17 Range/Units 05:35 11:57 06:57 WBC (4.0-10.5) K/mm3 RBC (4.2-5.4) M/mm3 Hgb (12.5-16.0) gm/dL Hct (37.0-47.0) % MCH (27-31) pg MCHC (32-36) g/dl RDW (11.5-14.0) % Plt Count (150-450) K/mm3 MPV (6.0-9.5) fl PT 11.9 H (9.4-11.4) Seconds INR (Anticoag Therapy) 1.14 H (0.90-1.10) INR PTT ([place]) 37.9 H (24-32) Seconds Potassium 4.7 H (3.4-4.6) mmol/L Chloride 109 H (97-106) mmol/L Carbon Dioxide 23.3 L (24-32.6) mmol/L Lactate Dehydrogenase 336 H (81-234) U/L Total Protein 5.6 L (6.2-8.2) gm/dL Procalcitonin 1.14 H (0.05-0.50) ng/mL 05/03/17 Range/Units 06:58 WBC 27.6 H (4.0-10.5) K/mm3 RBC 3.62 L (4.2-5.4) M/mm3 Hgb 9.5 L (12.5-16.0) gm/dL Hct 31.7 L (37.0-47.0) % MCH 26.2 L (27-31) pg MCHC 30.0 L (32-36) g/dl RDW 20.7 H (11.5-14.0) % Plt Count 649 H (150-450) K/mm3 MPV 10.9 H (6.0-9.5) fl PT (9.4-11.4) Seconds INR (Anticoag Therapy) (0.90-1.10) INR PTT ([place]) (24-32) Seconds Potassium (3.4-4.6) mmol/L Chloride (97-106) mmol/L Carbon Dioxide (24-32.6) mmol/L Lactate Dehydrogenase (81-234) U/L Total Protein (6.2-8.2) gm/dL Procalcitonin (0.05-0.50) ng/mL - Exam Constitutional: Present: Alert, Oriented x3, Cooperative, No distress ENT Exam: Present: hearing grossly normal, moist mucous membranes Respiratory: Present: other - Diminished to absent breath sounds at the bases bilaterally, coarse breath sounds with rhonchi noted on left Cardiovascular/Chest: Present: regular rate, rhythm, edema Abdomen: Present: soft, nontender, nondistended, hypoactive Extremity: Present: lower extremity edema Skin Exam: Present: warm/dry, other - Evidence of venous stasis dermatitis with mild erythema of lower extremities (especially over osborn area) bilaterally Neurologic: Present: alert, normal mood/affect, oriented x 3 Appearance: Present: appropriate appearance, appropriate insight, neat, no memory impairment Eye contact: Present: cooperative, good eye contact, normal speech Thoughts: Present: normal thought pattern, no apparent hallucination Assessment/Plan Plan Narrative: Plan for thoracentesis by radiology today; primarily diagnostic and secondarily therapeutic. Send fluid for analysis including gram stain and culture, LDH, total protein, etc. Also, send fluid for cytology. If non-diagnostic, patient will need to have a liver biopsy next week (after she has been off her aspirin for 7 days which was discontinued on 05/01/2017). Continue ongoing PT evaluation and treatment. Continue current antibiotics. Await pleural fluid results. - Problems/Diagnosis (1) Pleural effusion Problem: Acute (2) Leukocytosis Problem: Acute (3) Liver lesion Problem: Acute (4) Lung nodules Problem: Acute (5) Normocytic anemia Problem: Acute (6) Pneumonia Problem: Acute (7) Thrombocytosis Problem: Acute (8) Metastatic cancer Problem: Suspected (9) Lower extremity edema Problem: Acute (10) Weight loss, unintentional Problem: Acute (11) Adenocarcinoma, colon Problem: Chronic (12) S/P colon resection Problem: Chronic (13) Venous stasis dermatitis Problem: Chronic Qualifiers: Laterality: bilateral Qualified Code(s): I87.2 - Venous insufficiency ( chronic) (peripheral)
[2017-05-03 07:41] LABS: Band 1 % (0-2.0); Eosinophil 1 % (0-3); Lymphocyte 3 % (20-51); Monocyte 2 % (0-9); Neutrophil 93 % (42-75); Neutrophil # 25.7 K/mm3 (1.3-6.0); Platelet Estimate Increased (NORMAL)
[2017-05-03 07:43] LABS: Anisocytosis 1+; Hypochromia 1+
[2017-05-03] MEDS: NORMAL SALINE 1,000 ML IV PRN ×2 (07:55→19:55)
[2017-05-03] MEDS: CALCIUM CARBONATE/VITAMIN D3 1 TAB TABLET PO SCH ×2 (09:07→22:07)
[2017-05-03] MEDS: CHOLECALCIFEROL 1,000 UNIT CAPSULE PO SCH (09:07)
[2017-05-03] MEDS: SACCHAROMYCES BOULARDII 250 MG CAPSULE PO SCH ×2 (09:07→22:07)
[2017-05-03] MEDS: MULTIVITAMINS 1 CAP CAPSULE PO SCH (09:07)
[2017-05-03] MEDS: CEFEPIME HCL 1 GM in DEXTROSE 5 % IN WATER 100 ML IV SCH ×2 (09:08)
[2017-05-03] MEDS: ALBUTEROL SULFATE 2.5 MG/0.5 ML VIAL.NEB IH PRN (11:40)
[2017-05-03] MEDS: LEVOFLOXACIN/D5W 750 MG/150 ML BAG IV SCH (11:41)
[2017-05-03] MEDS: VANCOMYCIN HCL 750 MG in DEXTROSE 5 % IN WATER 250 ML IV SCH ×2 (13:34)
[2017-05-03] MEDS: MORPHINE SULFATE 2 MG/ML DISP.SYRIN IV PRN (22:16)
[2017-05-04] MEDS: ALBUTEROL SULFATE/IPRATROPIUM 3 ML NEBU IH SCH ×2 (00:21→06:07)
[2017-05-04] MEDS: NORMAL SALINE 1,000 ML IV PRN (05:49)
[2017-05-04 06:40] VITALS: BP 130/52
[2017-05-04] MEDS: MORPHINE SULFATE 2 MG/ML DISP.SYRIN IV PRN (07:03)
[2017-05-04 08:14] LABS: Anion Gap 11.9 mmol/L (6.8-13.8); Calcium * 8.3 mg/dL (7.9-10.9); Carbon Dioxide 23.1 mmol/L (24-32.6); Estimated Creat Clear 41.9
[2017-05-04 08:20] LABS: Hematocrit 30.7 % (37.0-47.0); Hemoglobin 9.4 gm/dL (12.5-16.0); Mean Cell Volume 88.5 fl (78-100); Mean Corpuscular Hemoglobin 27.1 pg (27-31); Mean Corpuscular Hgb Conc 30.6 g/dl (32-36); Mean Platelet Volume 12.2 fl (6.0-9.5); Red Blood Count 3.47 M/mm3 (4.2-5.4); Red Cell Distribution Width 20.2 % (11.5-14.0); White Blood Count 25.9 K/mm3 (4.0-10.5)
[2017-05-04 08:56] LABS: Total Cells Counted 100
[2017-05-04 08:58] LABS: Band 5 % (0-2.0); Monocyte 1 % (0-9); Neutrophil 94 % (42-75); Neutrophil # 24.3 K/mm3 (1.3-6.0)
[2017-05-04 08:59] LABS: Anisocytosis 2+; Dohle Bodies 3+
[2017-05-04] MEDS ORDERED: POLYVINYL ALCOHOL 150 DROP BTL EACHEYE PRN (09:01)
[2017-05-04] MEDS ORDERED: ATROPINE SULFATE 150 DROP BTL SL PRN (09:01)
[2017-05-04] MEDS ORDERED: LORazepam 2 MG/ML DISP.SYRIN IV PRN (09:01)
[2017-05-04] MEDS ORDERED: ONDANSETRON HCL/PF 2 MG/ML VIAL IV PRN (09:01)
[2017-05-04] MEDS ORDERED: MORPHINE SULFATE 10 MG/ML SYRG IV PRN ×2 (09:04)
[2017-05-04] MEDS: CHOLECALCIFEROL 1,000 UNIT CAPSULE PO SCH (10:13)
[2017-05-04] MEDS: SACCHAROMYCES BOULARDII 250 MG CAPSULE PO SCH (10:13)
[2017-05-04] MEDS: CALCIUM CARBONATE/VITAMIN D3 1 TAB TABLET PO SCH (10:13)
[2017-05-04] MEDS: MULTIVITAMINS 1 CAP CAPSULE PO SCH (10:13)
[2017-05-04] MEDS ORDERED: VANCOMYCIN HCL LEVEL XX ONE (11:30)
--- NOTE | 2017-05-10 10:25 | DS ---
Discharge Summary - Provider Admitting Clinician: Rylee Steele Attending Physician on Admission: Rylee Steele - Date and Time Date of : 05/04/17 Time of : 11:05 - Diagnosis/Cause of (1) Hypotension Problems: Acute (2) Leukocytosis Problems: Acute (3) Liver lesion Problems: Acute (4) Lung nodules Problems: Acute (5) Normocytic anemia Problems: Acute (6) Pleural effusion Problems: Acute (7) Pneumonia Problems: Acute (8) Thrombocytosis Problems: Acute (9) Metastatic cancer Problems: Suspected (10) Adenocarcinoma Problems: Acute (11) Colon cancer Problems: Acute (12) Lower extremity edema Problems: Acute (13) Weight loss, unintentional Problems: Acute (14) Adenocarcinoma, colon Problems: Chronic (15) S/P colon resection Problems: Chronic (16) Shortness of breath Problems: Chronic (17) Venous stasis dermatitis Problems: Chronic - Summary Details (narrative): The patient was admitted for generalized weakness, unintentional weight loss and hypotension. The patient was found to have likely metastatic cancer (with lesions in the bilateral lungs and liver) of unknown primary although a colon primary is favored given her history of colon adenocarcinoma with resection last year. Workup was initiated and the patient underwent a right-sided diagnostic thoracentesis during her admission but unfortunately the pleural fluid was nondiagnostic. The patient's condition continued to deteriorate and the patient was made comfort cares only approximately 2 hours before the patient . Procedures Performed: see notes below Procedure Performed: Ultrasound-guided right-sided diagnostic thoracentesis on 05/03/2017 - Additional Data Attending/PCP notified: Yes Attending physician: Rylee Steele Was code activated: No Autopsy requested: No Organ Bank notified: Yes Hospice patient: No
--- NOTE | 2017-05-11 22:34 | ERNOTE ---
Medical Problem HPI - Narrative Date of Service: 04/21/17 - General Chief Complaint: General Assessment Source: patient, family - Immun/Allergies/Home Medications Immunizations: IMMUNIZATION HX Immunizations Up to Date Yes History of Influenza Vaccine Yes Hx Pneumococcal Vaccination Yes Allergies/Adverse Reactions: Allergies acetaminophen [From Darvocet-N 100] Adverse Reaction (Mild, Verified 04/29/17 14 :23) N/V propoxyphene napsylate [From Darvocet-N 100] Adverse Reaction (Mild, Verified 14:23) N/V Home Medications: HOME MEDICATIONS Aspirin [Aspirin Enteric Coated] 81 mg PO DAILY 01/11/16 [Last Taken 01/16/16 09 :00] Calcium Carbonate/Vitamin D3 [Calcium 500-Vit D3 200 Tablet] 2 each PO DAILY [Last Taken 01/16/16 09:00] Cholecalciferol [Vitamin D] 1,000 unit PO DAILY 01/11/16 [Last Taken 01/16/16 09 :00] Furosemide [Lasix] 40 mg PO BID 01/11/16 [Last Taken 01/16/16 09:00] Metoprolol Tartrate [Lopressor] 25 mg PO BID 01/11/16 [Last Taken 01/16/16 09:00 ] Multivitamins [Multivitamin Almas] 1 cap PO DAILY 01/11/16 [Last Taken 09:00] Simvastatin [Zocor] 10 mg PO DAILY 01/11/16 [Last Taken 01/15/16 21:00] Acetaminophen [Tylenol] 500 mg PO Q4H PRN #30 tablet 01/26/16 [Last Taken Unknown] Albuterol Sulfate [Proair Respiclick] 90 mcg IH Q4H PRN 04/19/17 [Last Taken Unknown] Albuterol Sulfate/Ipratropium [Duoneb 2.5-0.5MG/3ML Soln] 3 ml IH BID PRN [Last Taken Unknown] Iron 28 mg PO DAILY 04/19/17 [Last Taken Unknown] Lisinopril [Zestril] 40 mg PO DAILY 04/29/17 [Last Taken Unknown] - History of Present History Narrative: patient recently dx with liver mets, past hx of colonca with resection Timing: constant, getting worse Severity: moderate Modifying Factors - (Improves): Present: other - nothing has improved condition Review of Systems - Review of Systems Constitutional: Present: See HPI, weakness, fatigue, malaise, weight loss EYE: Present: no symptoms reported ENT: Present: no symptoms reported Respiratory: Present: shortness of breath Cardiology: Present: no symptoms reported Gastrointestinal/Abdominal: Present: See HPI, nausea, eating less, drinking less Genitourinary: Present: no symptoms reported Musculoskeletal: Present: no symptoms reported Skin: Present: no symptoms reported Neurological: Present: headache, dizziness/light-headedness, weakness Endocrine: Present: no symptoms reported, See HPI, unexplained weight loss Hematologic/Lymphatic: Present: easy bruising Psych: Present: no symptoms reported All Other Systems: All systems neg except as marked - Narrative Narrative: patient recently dx with liver mets - Patient's Past Medical History Patient History - Medical: Cataracts, Other Patient History - Cardiac/Respiratory: COPD, Hypertension, Hyperlipidemia Patient History - Cancer: Colon - sigmoid colon cancer, Liver, Lung Patient History - Surgical Procedures: Cataracts, Colon Resection, Colonoscopy, T & A, Other Patient History - Other: None LMP (females 10-50): Menopausal LMP (Calendar): 08/13/69 - Family History Father Family History - Medical: , No pertinent hx Family History - Cardiac/Respiratory: Other Mother Family History - Medical: , No pertinent hx - Social History Living Situations: spouse Abuse History: No History of abuse Psych History: No pertinent hx Smoking Status: Former smoker Have you smoked in the past 12 months: No Do you dip or chew tobacco: No Patient requests Smoking Cessation Consult: No Initiate information on Smoking Cessation: No Alcohol Use: none Drug Use: none - Immunizations Immunizations Up to Date: Yes Hx Pneumococcal Vaccination: Yes History of Influenza Vaccine: Yes Physical Exam - Physical Exam General Appearance: Present: moderate distress, anxious, lethargic, cachetic, attentive for age Head Exam: Present: normal inspection, no evidence of injury Eye Exam: Normal inspection: bilateral, PERRL: bilateral, EOMI: bilateral Ears, Nose, Throat: Present: dry mucous membranes Neck: Present: normal inspection, nontender, full range of motion Respiratory: Present: decreased breath sounds, rales, rhonchi Cardiovascular/Chest: Present: regular rate, rhythm, no murmur, normal peripheral pulses Peripheral Pulses: N=norm/S=strong/W=weak/B=bound/A=absent: Carotid (R): Normal , Carotid (L): Normal, Radial (R): Normal, Radial (L): Normal, Femoral (R): Normal, Femoral (L): Normal, Dorsalis-pedis (R): Normal, Dorsalis-pedis (L): Normal Gastrointestinal/Abdominal: Present: normal bowel sounds, nontender, nondistended, soft, no organomegaly Back Exam: Present: normal inspection, normal range of motion, no CVA tenderness , no vertebral tenderness Extremity Exam: Present: decreased range of motion, pedal edema Neurological Exam: Present: alert, motor weakness DTR: N=norm/NB=norm/brisk/A=abs/DD=dull/dimin/HC=hyperactive: Bicep (R): Normal , Bicep (L): Normal, Tricep (R): Normal, Tricep (L): Normal, Knee (R): Normal, Knee (L): Normal, Ankle (R): Normal, Ankle (L): Normal Skin Exam: Present: pallor, intertrigo ED Progress - Results and Orders Patient's Lab Results:: I have reviewed the patient's lab results. - Vital Signs Patient's Vital Signs:: I have reviewed the patient's vital signs. - Progress/Reassessment Chief Complaint: General Assessment Progress:: Unchanged - case discussed with dr tang to be admitted palliative care - Transfer of Care Expected Disposition: Admit Plan - Plan Plan: plan to admit for palliative care Departure Clinical Impression: Metastasis to liver - Departure Condition:
== END 2017-05-04 11:05 | disposition expired | DRG 194 ==
LOC: ER 14:17 → MS 16:35
PROVIDERS: ADMIT Internal Medicine; ATTEND Internal Medicine
PROC: 0W9930Z Drainage of Right Pleural Cavity with Drainage Device, Percutaneous Approach (ICD-10-PCS; principal; 2017-05-03)
PROC: 4A033R1 Measurement of Arterial Saturation, Peripheral, Percutaneous Approach (ICD-10-PCS; 2017-05-04)
DX: J18.9 Pneumonia, unspecified organism (principal); C18.9 Malignant neoplasm of colon, unspecified; C78.7 Secondary malignant neoplasm of liver and intrahepatic bile duct; C78.02 Secondary malignant neoplasm of left lung; C78.01 Secondary malignant neoplasm of right lung; R63.4 Abnormal weight loss; D47.3 Essential (hemorrhagic) thrombocythemia; D72.829 Elevated white blood cell count, unspecified; I10 Essential (primary) hypertension; E78.5 Hyperlipidemia, unspecified; I87.2 Venous insufficiency (chronic) (peripheral); R53.1 Weakness; Z79.82 Long term (current) use of aspirin